=== PATIENT | male | born 1960 | race Two or more races ===

== ENCOUNTER → 2024-09-22 | Outpatient (CLI) | payer MEDICAID, SELFPAY ==
--- NOTE | 2024-09-22 15:32 | XR_ITS ---
Examination: Abdomen AP single view Technique: AP portable supine abdomen, single view Exam date and time: September 22, 2024 1638 hours INDICATIONS: History kidney stones, flank pain, post lithotripsy ureteral stent placement COMPARISON: August 20, 2024 FINDINGS: Left ureteral stent satisfactory position 14 mm calculus lower pole left kidney 8 mm calculus upper pole left kidney 3 mm, 2 mm right renal calculi No ureteral calculi IMPRESSION: Bilateral renal calculi as above Left ureteral stent satisfactory position
== END | disposition home or self-care (01) ==
PROVIDERS: Referring Provider Surgery; Visit Provider Surgery
DX: N20.0 Calculus of kidney (principal)
CPT/HCPCS: 74018

== ENCOUNTER → 2024-12-29 | Outpatient (CLI) | payer MEDICAID, SELFPAY ==
--- NOTE | 2024-12-29 | XR_ITS ---
Examination: Abdomen AP single view Technique: AP portable supine abdomen, single view Exam date and time: December 29, 2024 1244 hours Comparison September 22, 2024 INDICATIONS: Left flank pain 4 months post ureteral stent placement FINDINGS: 9 mm upper pole 15 mm lower pole left renal calculi Left ureteral stent satisfactory position IMPRESSION: Left renal calculi as above Left ureteral stent satisfactory position
== END | disposition home or self-care (01) ==
LOC: CDIM 11:46
PROVIDERS: Referring Provider Surgery; Visit Provider Surgery
DX: N20.0 Calculus of kidney (principal)
CPT/HCPCS: 74018

== ENCOUNTER → 2025-01-13 | Outpatient (CLI) | payer MEDICAID, SELFPAY ==
[2025-01-13 07:49] VITALS: BMI 39.8
[2025-01-13 08:12] LABS: Collection Type, Urine Clean Catch
[2025-01-13 08:34] LABS: Basophils # (Auto) 0.1 Thou/mm3 (0.0-0.2); Basophils % (Auto) 1 % (0-2.5); Eosinophils # (Auto) 0.4 Thou/mm3 (0.0-0.5); Eosinophils % (Auto) 5 % (0-10); Hemoglobin 16.6 g/dL (13.5-16.0); Immature Granulocytes % (Auto) 0 % (0-0); Immature Granulocytes Auto 0.03 Thou/mm3 (0.00-0.00); Lymphocytes # (Auto) 2.7 Thou/mm3 (1.0-4.8); Lymphocytes % (Auto) 35 % (10-50); Mean Corpuscular HGB Conc 33.9 g/dl (31.0-37.0); Mean Corpuscular Hemoglobin 30.4 pg (25.0-35.0); Mean Corpuscular Volume 90 fL (80-100); Monocytes # (Auto) 0.6 Thou/mm3 (0.0-0.8); Monocytes % (Auto) 7 % (0-12); Neutrophils # (Auto) 3.9 Thou/mm3 (1.8-7.7); Neutrophils % (Auto) 51 % (37-80); Nucleated Red Blood Cell % 0 /100 WBC (0); Platelet Count 231 Thou/mm3 (140-440); RDW Standard Deviation 43.2 fL (35.1-43.9); Red Blood Count 5.46 Miln/mm3 (4.50-5.90); White Blood Count 7.7 Thou/mm3 (3.8-10.6)
[2025-01-13 08:37] LABS: Bilirubin,Urine Negative (Negative); Blood,Urine 3+ (Negative); Clarity,Urine Clear (Clear/Hazy); Color,Urine Lt-Yellow (Lt Yel-Yel); Glucose, Urine Negative (Negative); Ketones,Urine Negative (Negative); Leukocyte Esterase,Urine Positive (Negative); Nitrite,Urine Negative (Negative); PH,Urine 6.5 (5.0-7.0); Protein,Urine Negative (Neg - Trace); RBC,Urine 296 /hpf (0-3); Specific Gravity,Urine 1.009 (1.001-1.035); Squamous Epithelial Cell,Urine < 1 /hpf (0-5); Urobilinogen,Urine Negative mg/dL (0.0-1.0); WBC,Urine 14 /hpf (0-5)
[2025-01-13 08:55] LABS: Alanine Aminotransferase 43 U/L (10-49); Albumin, Serum 4.3 gm/dL (3.4-4.8); Albumin/Globulin Ratio 1.4 (1.2-2.2); Alkaline Phosphatase 73 U/L (46-116); Anion Gap 7 (7-16); Aspartate Amino Transferase 33 U/L (0-34); BUN/Creatinine Ratio 12 Ratio (12-20); Blood Urea Nitrogen 11 mg/dL (9-23); Calcium 9.2 mg/dL (8.3-10.6); Calcium (Corrected) 9.2 mg/dL (8.5-10.1); Carbon Dioxide 27.3 mMol/L (20.0-31.0); Chloride 107 mMol/L (98-107); Creatinine (Component) 0.9 mg/dL (0.6-1.3); Estimated Creatinine Clearance 105.2 mL/min (>60); Glucose 101 mg/dL (74-106); Osmolality,Calculated 280 (275-295); Sodium 141 mMol/L (136-145); Total Protein 7.3 gm/dL (5.7-8.2); eGFR > 60 See Note
--- NOTE | 2025-01-13 12:26 | ESHP_ITS ---
RE: PATI TOM : 1960 DATE OF ADMISSION: 01/14/2025 HISTORY OF PRESENT ILLNESS: The patient is a gentleman with a history of urinary calculi. He had left ureteral stent and left ESWL done. The patient has passed several stones. He still has some residual stone. There is a stone in the mid pole of the kidney about 8 mm in size and lower pole stone about 14 mm in size. He has a left ureteral stent. He is now scheduled to have a repeat left ESWL. The patient has a history of urinary calculi in the past. He had left-sided flank pain, previous surgery for his sinus and ESWL in the past in 08/2024. PAST MEDICAL HISTORY: There is no history of diabetes mellitus. He does have a history of hypertension. SOCIAL HISTORY: He has three children. ALLERGIES: NONE KNOWN. HOME MEDICATIONS: He takes losartan. PHYSICAL EXAMINATION: HEENT: Normal. NECK: Supple. LUNGS: Clear. CARDIOVASCULAR: Heart sounds are normal. ABDOMEN: Soft without any organomegaly. No guarding. No rigidity. EXTREMITIES: Normal. IMPRESSION: 1. Left renal calculi. 2. Left ureteral stent. PLAN: Left ESWL. Planned procedure, risks and complications have been discussed with the patient. The patient has understood them and agreed to proceed. DT: 11:53:56 TT: 12:24:00 Ref: [id number] - TID: [id number]
== END | disposition home or self-care (01) ==
LOC: SLAB 01-17 08:33
PROVIDERS: Anesthesiology; PCP Family Medicine; Referring Provider Surgery; Visit Provider Surgery
PROC: (CPT 50590; principal; 2025-01-14 10:15)
DX: N20.0 Calculus of kidney (principal); N20.1 Calculus of ureter
CPT/HCPCS: 36415; 80053; 81001; 85025; 87086

== ENCOUNTER 2025-02-22 07:00 | Day surgery (SDC) | payer MEDICAID, SELFPAY ==
[2025-02-16 06:51] VITALS: BMI 39.4
--- NOTE | 2025-02-16 07:00 | EKG_ITS ---
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
[2025-02-16 07:34] LABS: Collection Type, Urine Clean Catch; Squamous Epithelial Cell,Urine 0 /hpf (0-5); WBC,Urine 0 /hpf (0-5)
[2025-02-16 08:10] LABS: Alanine Aminotransferase 48 U/L (10-49); Albumin, Serum 4.7 gm/dL (3.4-4.8); Albumin/Globulin Ratio 1.6 (1.2-2.2); Alkaline Phosphatase 80 U/L (46-116); Anion Gap 8 (7-16); Aspartate Amino Transferase 29 U/L (0-34); BUN/Creatinine Ratio 18 Ratio (12-20); Bilirubin,Total 1.2 mg/dL (0.3-1.2); Blood Urea Nitrogen 14 mg/dL (9-23); Calcium 9.1 mg/dL (8.3-10.6); Calcium (Corrected) 9.1 mg/dL (8.5-10.1); Carbon Dioxide 27.5 mMol/L (20.0-31.0); Chloride 105 mMol/L (98-107); Creatinine (Component) 0.8 mg/dL (0.6-1.3); Estimated Creatinine Clearance 121.5 mL/min (>60); Glucose 98 mg/dL (74-106); Osmolality,Calculated 279 (275-295); Potassium 3.8 mMol/L (3.4-5.1); Sodium 140 mMol/L (136-145); Total Protein 7.7 gm/dL (5.7-8.2); eGFR > 60 See Note
[2025-02-16 08:18] LABS: Bilirubin,Urine Negative (Negative); Blood,Urine 3+ (Negative); Clarity,Urine Clear (Clear/Hazy); Color,Urine Colorless (Lt Yel-Yel); Glucose, Urine Negative (Negative); Ketones,Urine Negative (Negative); Leukocyte Esterase,Urine Negative (Negative); Nitrite,Urine Negative (Negative); PH,Urine 6.5 (5.0-7.0); Protein,Urine Negative (Neg - Trace); RBC,Urine 7 /hpf (0-3); Specific Gravity,Urine 1.004 (1.001-1.035); Urobilinogen,Urine Negative mg/dL (0.0-1.0)
[2025-02-16 08:38] LABS: Basophils # (Auto) 0.1 Thou/mm3 (0.0-0.2); Basophils % (Auto) 1 % (0-2.5); Eosinophils # (Auto) 0.1 Thou/mm3 (0.0-0.5); Eosinophils % (Auto) 1 % (0-10); Hematocrit 46.8 % (41.0-53.0); Hemoglobin 16.4 g/dL (13.5-16.0); Immature Granulocytes % (Auto) 1 % (0-0); Immature Granulocytes Auto 0.06 Thou/mm3 (0.00-0.00); Lymphocytes # (Auto) 2.9 Thou/mm3 (1.0-4.8); Lymphocytes % (Auto) 25 % (10-50); Mean Corpuscular Hemoglobin 30.9 pg (25.0-35.0); Mean Corpuscular Volume 88 fL (80-100); Monocytes # (Auto) 0.6 Thou/mm3 (0.0-0.8); Monocytes % (Auto) 5 % (0-12); Neutrophils # (Auto) 7.9 Thou/mm3 (1.8-7.7); Neutrophils % (Auto) 68 % (37-80); Nucleated Red Blood Cell % 0 /100 WBC (0); Platelet Count 248 Thou/mm3 (140-440); White Blood Count 11.7 Thou/mm3 (3.8-10.6)
--- NOTE | 2025-02-17 13:03 | ESHP_ITS ---
RE: PATI TOM : 1960 DATE OF ADMISSION: 02/18/2025 HISTORY OF PRESENT ILLNESS: The patient is a 64-year-old gentleman with a history of kidney stones. The patient had left ureteral stent insertion and ESWL for the left kidney stones. The patient has passed some stones. He still has remaining stones in the left kidney and is scheduled to have ESWL for the remaining left kidney stones. Planned procedure, risks and complications have been discussed with the patient. The patient has understood them and agreed to proceed. The patient has lower pole left kidney stone about 14 mm in size and upper pole kidney stone about 8 mm in size. SOCIAL HISTORY: The patient has 3 children. PAST MEDICAL HISTORY: There is no history of diabetes mellitus. He has a history of hypertension. HOME MEDICATIONS: He takes losartan. ALLERGIES: NONE KNOWN. PHYSICAL EXAMINATION: HEENT: Normal. NECK: Supple. LUNGS: Clear. CARDIOVASCULAR: Heart sounds are normal. ABDOMEN: Soft without any organomegaly. No guarding. No rigidity. EXTREMITIES: Normal. IMPRESSION: Left kidney stones. PLAN: ESWL for left kidney stones. The patient does have a left ureteral stent in place. Planned procedure, risks and complications have been discussed with the patient. The patient has understood them and agreed to proceed. DT: 12:10:47 TT: 13:02:00 Ref: [id number] - TID: [id number]
[2025-02-22] VITALS (8 sets, daily range): BP systolic 115–157; BP diastolic 77–93; PULSE 64–85; RESP 12–18; TEMP 36.3–36.8; O2SAT 93–99; BMI 38.9
--- NOTE | 2025-02-22 06:00 | XR_ITS ---
Examination: Abdomen AP single view Technique: AP portable supine abdomen, single view Exam date and time: February 22, 2025 0842 hours Comparison December 29, 2024 INDICATIONS: History kidney stones preop lithotripsy FINDINGS: Again noted a 15 mm, 9 mm left renal calculi Left ureteral stent in satisfactory position Nonobstructive bowel gas pattern IMPRESSION: Stable position of left renal calculi
--- NOTE | 2025-02-22 10:24 | SUR.PHASEI ---
1024 Patient arrived to recovery resting comfortably in [facility], drowsy, oxygen therapy initiated 4L via nasal cannula, breathing unlabored, vital signs stable, denies pain and nausea, report received from Sujit ALEXANDER/Dr. Skelton and Prosper MEJÍA
--- NOTE | 2025-02-22 10:32 | SUR.OPER ---
ESWL Treatment: Power of 8 2,500 shocks 1 minute 10 seconds fluoro time
--- NOTE | 2025-02-22 11:32 | SUR.PHASEII ---
1132 Patient meets discharge criteria from recovery, awake and alert, breathing unlabored, vital signs stable, denies pain, drinking fluids; denies nausea, able to dress himself into his clothing, discharge instructions given with the assistance of the telephone hourly sign language interpreter Elvira ID#[id number] to patient and his son, son signed discharge instructions. Patient given all his belongings prior to discharge, transported via wheelchair and left in a private vehicle.
--- NOTE | 2025-02-22 18:09 | ESOP_ITS ---
RE: PATI TOM : 1960 DATE OF OPERATION: 02/22/2025 PREOPERATIVE DIAGNOSIS: Left renal calculi. POSTOPERATIVE DIAGNOSIS: Left renal calculi. PROCEDURE PERFORMED: ESWL for left renal calculi. ANESTHESIA: General by Dr. Skelton. INDICATION: The patient is a 64-year-old gentleman with left renal calculi. The patient has several densities on both sides of his abdomen on x-rays which are outside the kidneys. They are on the left side, outside the kidney also on the right side, but the patient has a left renal calculi. The patient had a left ureteral stent placed. Now he has about 1.5 cm left renal calculus next to the stent, which was placed near the upper pole of the kidney. The patient had a lithotripsy done before. This is a residual calculus in the left kidney. He is now scheduled to have ESWL for the left calculus. Planned procedure, risks and complications have been discussed with the patient. The patient understood them and agreed to proceed. DESCRIPTION OF PROCEDURE: After the patient was brought to the operating table under adequate general anesthesia, the patient was positioned on Dornier Delta III lithotripsy machine. 2500 shocks were given to the stone power level 8. The patient tolerated the entire procedure well and left the room in good condition. DT: 11:43:58 TT: 18:07:00 Ref: [id number] - TID: [id number]
== END 2025-02-22 11:32 | disposition home or self-care (01) ==
PROVIDERS: Anesthesiology; Referring Provider Surgery; Visit Provider Surgery
PROC: (CPT 50590; principal; 2025-02-22 09:15)
DX: N20.0 Calculus of kidney (principal); I10 Essential (primary) hypertension
CPT/HCPCS: 50590; 36415; 74018; 80053; 81001; 85025; 87086; 93005; A4217; J0694; J1100; J2250; J2371; J2405; J2704; J3010

== ENCOUNTER → 2025-03-02 | Outpatient (CLI) | payer MEDICAID, SELFPAY ==
--- NOTE | 2025-03-02 16:03 | XR_ITS ---
Examination: Abdomen AP single view Technique: AP portable supine abdomen, single view Exam date and time: March 02, 2025 1608 hours Comparison February 22, 2025 INDICATIONS: History left kidney stones left ureteral stent placement FINDINGS: Left ureteral stent in satisfactory position Multiple left renal calculi including 10 mm and 15 mm in the lower pole left kidney 6 mm calcification adjacent to the upper portion of the left ureteral stent IMPRESSION: Left renal and probably ureteral calculi as above
== END | disposition home or self-care (01) ==
PROVIDERS: PCP Surgery; Referring Provider Surgery; Visit Provider Surgery
DX: N20.0 Calculus of kidney (principal)
CPT/HCPCS: 74018

== ENCOUNTER 2025-04-01 08:30 | Day surgery (SDC) | payer MEDICAID, SELFPAY ==
[2025-03-30 09:49] VITALS: BMI 39.0
[2025-03-30 11:44] LABS: Collection Type, Urine Clean Catch; Squamous Epithelial Cell,Urine 0 /hpf (0-5)
[2025-03-30 11:59] LABS: Basophils # (Auto) 0.1 Thou/mm3 (0.0-0.2); Basophils % (Auto) 1 % (0-2.5); Eosinophils # (Auto) 0.3 Thou/mm3 (0.0-0.5); Eosinophils % (Auto) 3 % (0-10); Hematocrit 47.9 % (41.0-53.0); Hemoglobin 16.3 g/dL (13.5-16.0); Immature Granulocytes % (Auto) 1 % (0-0); Immature Granulocytes Auto 0.05 Thou/mm3 (0.00-0.00); Lymphocytes # (Auto) 2.5 Thou/mm3 (1.0-4.8); Lymphocytes % (Auto) 31 % (10-50); Mean Corpuscular Volume 91 fL (80-100); Monocytes # (Auto) 0.5 Thou/mm3 (0.0-0.8); Monocytes % (Auto) 7 % (0-12); Neutrophils # (Auto) 4.6 Thou/mm3 (1.8-7.7); Neutrophils % (Auto) 57 % (37-80); Nucleated Red Blood Cell % 0 /100 WBC (0); Platelet Count 269 Thou/mm3 (140-440); RDW Standard Deviation 45.1 fL (35.1-43.9); Red Blood Count 5.25 Miln/mm3 (4.50-5.90)
[2025-03-30 12:01] LABS: Bilirubin,Urine Negative (Negative); Blood,Urine 3+ (Negative); Clarity,Urine Clear (Clear/Hazy); Color,Urine Colorless (Lt Yel-Yel); Culture Indicated,Urine Not Indicated; Glucose, Urine Negative (Negative); Ketones,Urine Negative (Negative); Leukocyte Esterase,Urine Positive (Negative); Nitrite,Urine Negative (Negative); Protein,Urine Negative (Neg - Trace); RBC,Urine 40 /hpf (0-3); Specific Gravity,Urine 1.007 (1.001-1.035); Urobilinogen,Urine Negative mg/dL (0.0-1.0); WBC,Urine 7 /hpf (0-5)
[2025-04-01] VITALS (7 sets, daily range): BP systolic 116–157; BP diastolic 83–95; PULSE 74–106; RESP 12–15; TEMP 36.6–37.4; O2SAT 96–100; BMI 38.7
--- NOTE | 2025-04-01 06:00 | XR_ITS ---
Examination: Abdomen AP single view Technique: AP portable supine abdomen, single view Exam date and time: April 01, 2025 0912 hours INDICATIONS: Preop ureteral stent replacement FINDINGS: Left ureteral stent satisfactory position 7 mm upper pole, 10 mm, 9 mm, 3 mm 4 mm left renal calculi Apparent calcified lymph node overlying L3 IMPRESSION: Multiple left renal calculi Left ureteral stent satisfactory position
--- NOTE | 2025-04-01 07:33 | ESHP_ITS ---
RE: PATI TOM : 1960 DATE OF ADMISSION: 03/31/2025 HISTORY OF PRESENT ILLNESS: The patient has left renal stones. He had a left ureteral stent placed and had left ESWL done. The patient had multiple stones in the ureter and kidneys. Most of them have been broken, but patient still has a residual stone in the left kidney about 10 mm in size. He is now scheduled to have ESWL for left renal stone. The patient also will have cystoscopy and left ureteral stent exchange because his left ureteral stent is in place for more than 6 months. Clinical examination: HEENT: Normal. NECK: Supple. LUNGS: Clear. Cardiovascular: Heart sounds are normal. ABDOMEN: Soft without any organomegaly. No guarding. No rigidity. EXTREMITIES: Normal. PAST SURGICAL HISTORY: The patient had previous sinus surgeries. PAST MEDICAL HISTORY: There is no history of diabetes mellitus. The patient does have history of hypertension. MEDICATIONS: He takes losartan. SOCIAL HISTORY: The patient has 3 children. ALLERGIES: None known. IMPRESSION AND PLAN: Left renal stones. The patient had a left ureteral stent placed on 08/20/2024, 6-Syriac x 28 cm stent. The patient has a residual stone in the left kidney. He is now scheduled to have ESWL for left renal stone, possible cystoscopy, and left ureteral stent exchange. Planned procedure, risks and complications have been discussed with the patient. The patient has understood them and agreed to proceed. DT: 14:14:33 TT: 16:08:00 Ref: [id number] - TID: [id number]
--- NOTE | 2025-04-01 09:28 | SUR.PREOP ---
Patient expressed gratitude for prayer before their procedure.
[2025-04-01] MEDS: RINGERS LACTATED 1000 ML 1,000 ML 20 ML IV (09:45)
[2025-04-01 10:10] LABS: Alanine Aminotransferase 49 U/L (10-49); Albumin, Serum 4.4 gm/dL (3.4-4.8); Albumin/Globulin Ratio 1.6 (1.2-2.2); Alkaline Phosphatase 69 U/L (46-116); Anion Gap 8 (7-16); Aspartate Amino Transferase 37 U/L (0-34); BUN/Creatinine Ratio 12 Ratio (12-20); Bilirubin,Total 1.2 mg/dL (0.3-1.2); Blood Urea Nitrogen 11 mg/dL (9-23); Calcium 9.4 mg/dL (8.3-10.6); Calcium (Corrected) 9.4 mg/dL (8.5-10.1); Carbon Dioxide 25.8 mMol/L (20.0-31.0); Chloride 106 mMol/L (98-107); Creatinine (Component) 0.9 mg/dL (0.6-1.3); Globulin 2.7 gm/dL (2.3-3.5); Glucose 101 mg/dL (74-106); Osmolality,Calculated 278 (275-295); Potassium 4.2 mMol/L (3.4-5.1); Sodium 140 mMol/L (136-145); Total Protein 7.1 gm/dL (5.7-8.2); eGFR > 60 See Note
--- NOTE | 2025-04-01 13:43 | SUR.PHASEI ---
1347 Patient arrived to recovery resting comfortably in [facility], drowsy and able to arouse with verbal prompting, breathing unlabored, vital signs stable, denies pain and nausea, report received from Dr. Rosenthal and Александр MEJÍA
--- NOTE | 2025-04-01 14:35 | SUR.PHASEII ---
1435 Patient meets discharge criteria from recovery, awake and alert, breathing unlabored, vital signs stable, denies pain, drinking 7up; denies nausea, voided in the restroom; strained urine, no stones noted, patient able to dress himself into his clothing, discharge instructions given to patient and patients son with the assistance of the telephone Jena Bess [id number], son signed discharge instructions. Patient given all his belongings prior to discharge, transported via wheelchair and left in a private vehicle.
--- NOTE | 2025-04-01 14:57 | SUR.OPER ---
3 stones 2 upper one lower [id number] 3:17
--- NOTE | 2025-04-01 23:40 | ESOP_ITS ---
RE: PATI TOM : 1960 DATE OF OPERATION: 04/01/2025 PREOPERATIVE DIAGNOSIS: Left renal calculi. POSTOPERATIVE DIAGNOSIS: Left renal calculi. PROCEDURE PERFORMED: Extracorporeal shock wave lithotripsy for remaining left renal calculi. ANESTHESIA: General. INDICATIONS: The patient is a 64-year-old male who had multiple left upper ureteral and renal calculi. He had a left ureteral stent placed. He has had a previous ESWL done. He still has about 3 stones, each one about 7 mm in size located in the upper pole of the left kidney and in the lower pole of the left kidney, 2 stones about 7 mm each. He has a left ureteral stent in place. He is now scheduled to have ESWL for these 3 renal calculi. Planned procedure, risks, and complications have been discussed with the patient. The patient has understood them and agreed to proceed. DESCRIPTION OF PROCEDURE: After the patient was brought to the operating table under adequate general anesthesia, he was positioned on Dornier Delta III lithotripsy machine. 1000 shocks were given to each stone. Total number of shocks given to the left kidney were 3,000 shocks at power level 8. The patient tolerated the entire procedure well and left the room in good condition. DT: 13:41:49 TT: 19:44:00 Ref: [id number] - TID: [id number]
== END 2025-04-01 14:35 | disposition home or self-care (01) ==
PROVIDERS: Anesthesiology; PCP Internal Medicine Gastroenterology; Referring Provider Surgery; Visit Provider Surgery
PROC: (CPT 50590; principal; 2025-04-01 10:45)
DX: N20.0 Calculus of kidney (principal); Z87.19 Personal history of other diseases of the digestive system
CPT/HCPCS: 50590; 36415; 74018; 80053; 81001; 85025; A4217; A4649; J0694; J1100; J1885; J1938; J2250; J2405; J2704; J3010; J3490; J7120

== ENCOUNTER → 2025-04-14 | Outpatient (CLI) | payer MEDICAID, SELFPAY ==
--- NOTE | 2025-04-14 | XR_ITS ---
Examination: Abdomen AP single view Technique: AP portable supine abdomen, single view Exam date and time: April 14, 2025 1139 hours Comparison April 01, 2025 indications: Left kidney stones left ureteral stent placement FINDINGS: Left ureteral stent satisfactory position Numerous calculi in upper mid pole and lower pole left kidney No ureteral calculi depicted IMPRESSION: Left ureteral stent satisfactory position Multiple left renal calculi
== END | disposition home or self-care (01) ==
LOC: CDIM 11:10
PROVIDERS: Referring Provider Surgery; Visit Provider Surgery
DX: N20.0 Calculus of kidney (principal)
CPT/HCPCS: 74018